=== PATIENT | male | born 1970 | race Caucasian/White ===

== ENCOUNTER 2016-07-07 09:09 | Emergency (ER) | payer OTHER ==
[~2016-07-07] VITALS: Ht 177.8 cm; Wt 66.2 kg
[2016-07-07] MEDS ORDERED: PROTONIX20 MG PO (11:35)
[2016-07-07] MEDS ORDERED: ATIVAN1 MG PO (11:36)
== END 2016-07-07 10:55 | disposition short-term general hospital (02) ==
LOC: ER 09:09
DX: F10.251 Alcohol dependence with alcohol-induced psychotic disorder with hallucinations (principal); F10.239 Alcohol dependence with withdrawal, unspecified; R45.1 Restlessness and agitation